=== PATIENT | male | born 2000 | race Caucasian/White ===

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

== ENCOUNTER → 2022-01-07 12:29 | Outpatient (CLI) | payer OTHER, SELFPAY | PROVIDERS: Family Provider Pediatrics; PCP Family Medicine; Visit Provider Physician Assistant | DX: J02.9 Acute pharyngitis, unspecified (principal) | CPT/HCPCS: 87070 ==

== ENCOUNTER 2022-12-26 21:14 | Emergency (ER) | payer OTHER, SELFPAY ==
[2022-12-26 21:34] VITALS: BP 112/55; PULSE 62; RESP 16; TEMP 37.2; O2SAT 97; BMI 21.3
--- NOTE | 2022-12-27 00:49 | ED.ABDPAIN ---
HPI - Abdominal Pain General Chief Complaint: Abdominal Pain Stated Complaint: Stomach pain Time Seen by Provider: 12/27/22 00:49 Source: patient Mode of arrival: Wheelchair History of Present Illness HPI narrative: 22-year-old male nonsmoker with history of ADHD and asthma presents with family in the chief complaint of sudden onset severe abdominal pain that started this evening after eating chili. He states that it was quite intense and he had multiple episodes of dry heaving but denies any actual vomiting. He denies any radiation of the pain or other obvious provocation. He denies any palliation. Denies any constipation or diarrhea. He states that about 1 hour prior to arrival is symptoms had resolved and he is currently without any pain. He denies any history of the same. Related Data Home Medications Medication Instructions Recorded Confirmed albuterol sulfate 2.5 mg/3 mL 2.5 mg inhalation PRN PRN 06/22/18 01/07/22 (0.083 %) solution for nebulization Shortness Of Breath Previous Rx's Medication Instructions Recorded albuterol sulfate 90 mcg/actuation 2 puff inhalation .Q4 PRN 11/16/18 aerosol inhaler shortness of breath #18 grams Allergies Allergy/AdvReac Type Severity Reaction Status Date / Time No Known Drug Allergies Allergy Verified 01/07/22 12:16 Review of Systems Review of Systems Narrative: GENERAL: Denies chills, fatigue, malaise, fever, sweats. HEENT: Denies sinus pain, ear pain, sore throat, difficulty swallowing, dizziness. RESPIRATORY: Denies dyspnea, cough, wheezing, hemoptysis, sputum. CARDIOVASCULAR: Denies chest pain, palpitations, orthopnea, edema, GASTROINTESTINAL: See HPI : Denies dysuria, frequency, incontinence, hematuria, urinary retention. MUSCULOSKELETAL: denies weakness, joint pain, or bony pain SKIN: Denies rash, skin lesions, or other NEUROLOGIC: Denies weakness, headache, numbness, change in speech, confusion, seizures, incoordination. PSYCHIATRIC: No concerning psychosocial issues. 12 point review of systems is negative except for those stated above Patient History Medical History (Updated 12/27/22 @ 02:08 by Jersey Zhu DO) Asthma Surgical History No pertinent past surgical history Family History Mother No problems noted. Social History Smoking Status: Never smoker Smoking Status: Never smoker Substance Use Type: does not use Exam Narrative Exam Narrative: GENERAL: [22] year old patient appears stated age. Well-developed patient, in mild distress. HEAD: Atraumatic. Normocephalic. EYES: Pupils equal round and reactive. Extraocular motions intact. No scleral icterus. No injection or drainage. ENT: Nose without bleeding, purulent drainage. Throat without erythema, tonsillar hypertrophy or exudate. Airway patent. NECK: Trachea midline. Non tender CARDIOVASCULAR: Regular rate and rhythm without murmurs, gallops, or rubs. RESPIRATORY: Clear to auscultation. Breath sounds equal bilaterally. No wheezes, rales, or rhonchi. GASTROINTESTINAL: Abdomen soft, non-tender, nondistended. EXTREMITIES: No edema or joint tenderness. BACK: Nontender without deformity or crepitance. No flank tenderness. NEURO: AOx3. SKIN: No rash or erythema of visible areas Initial Vital Signs Initial Vital Signs: Vital Signs Temperature 99 F 12/26/22 21:34 Pulse Rate 62 12/26/22 21:34 Respiratory Rate 16 12/26/22 21:34 Blood Pressure 112/55 L 12/26/22 21:34 Pulse Oximetry 97 12/26/22 21:34 Oxygen Delivery Method Room Air 12/26/22 21:34 Course Orders Ordered: ED Orders 12/26/22 21:44 Ammonia (NH3) Stat Complete Blood Count AUTO DIFF Stat Comprehensive Metabolic Panel Stat Lipase Stat 12/27/22 00:59 US abdomen limited Stat Discontinued Medications Hydrocodone Bitart/Acetaminophen (Hydrocodone/Acet 5/325 Prepack) 1 bottle MISC SEEINSTR ONE Stop: 12/27/22 02:09 Last Admin: 12/27/22 02:31 Dose: 1 bottle Documented By: LETICIA Ondansetron HCl (Ondansetron 4 Mg Odt Prepack) 1 bottle MISC SEEINSTR ONE Stop: 12/27/22 02:09 Last Admin: 12/27/22 02:31 Dose: 1 bottle Documented By: SB Vital Signs Vital signs: Vital Signs - 8 hr 12/26/22 21:34 12/27/22 02:14 12/27/22 02:22 Temperature 99 F Pulse Rate 62 41 L 46 L Respiratory Rate 16 16 16 Blood Pressure 112/55 L 101/52 L 114/56 L Pulse Oximetry 97 97 Oxygen Delivery Method Room Air Room Air MDM - Abdominal Pain Lab Data 12/27/22 01:20 12/27/22 01:20 Labs: Lab Results 12/27/22 12/27/22 12/27/22 Range/Units 01:20 01:20 01:58 WBC 8.4 (4.5-11.0) X10^3/uL RBC 4.97 (4.5-5.9) X10^6/uL Hgb 14.9 (13.5-17.5) g/dL Hct 42.4 (41-53) % MCV 85.3 (80-100) fL MCH 30.0 (26-34) PG MCHC 35.2 (30-36) % RDW 12.4 (11.6-14.8) % Plt Count 299 (150-400) X10^3/uL Neut % (Auto) 37.6 L (50-75) % Lymph % (Auto) 43.8 H (25-40) % [place] % (Auto) 8.3 (3-14) % Eos % (Auto) 9.1 H (2-4) % Baso % (Auto) 1.2 (0-2) % Neut # (Auto) 3200 (8944-7678) /uL Lymph # (Auto) 3700 (8483-4581) /uL [place] # (Auto) 700 (0-900) /uL Eos # (Auto) 800 H (0-450) /uL Baso # (Auto) 100 (0-100) /uL Sodium 140 (137-145) mmol/L Potassium 3.9 (3.4-5.1) mmol/L Chloride 102 (98-107) mmol/L Carbon Dioxide 29 (22-32) mmol/L BUN 15 (9-20) mg/dL Creatinine 0.67 (0.66-1.25) mg/dL Estimated GFR > 60 (>60) mL/min BUN/Creatinine Ratio 22.4 H (6-22) Glucose 73 (70-100) mg/dL Calcium 9.4 (8.4-10.2) mg/dL Total Bilirubin 0.5 (0.2-1.3) mg/dL AST 30 (17-59) IU/L ALT 40 (<50) IU/L Alkaline Phosphatase 71 (38-126) U/L Ammonia < 9 L (9-30) umol/L Total Protein 7.8 (6.3-8.2) g/dL Albumin 4.7 (3.5-5.0) g/dL Globulin 3.1 (1.7-4.1) g/dL Albumin/Globulin Ratio 1.5 (1.0-2.8) Lipase 510 H (23-300) U/L Point of care testing: Urine Dip Bedside Urine Glucose Negative Bedside Urine Bilirubin - Negative Bedside Urine Ketone - Negative Urine Specific [place] 1.005 Bedside Urine Occult Blood - Negative Bedside Urine pH 7.5 Bedside Urine Protein - Negative Bedside Urine Urobilinogen - Negative Bedside Urine Nitrite - Negative Bedside Urine Leukocytes - Negative Esterase MDM Narrative Medical decision making narrative: CC: 22M with abdominal pain and dry heaving that has resolved Complicating co-morbidities: None known Data collected from: Patient Medical records reviewed: Prior notes reviewed in our EMR Differential considered, but not limited to: Gallbladder disease, pancreatitis, bowel obstruction versus other Exam documented above, pertinent findings include: Currently tender in the right upper quadrant, bowel sounds present, heart rate regular, lungs clear, nonlabored breathing Lab Test results independently reviewed as above. Pertinent findings: No leukocytosis or left shift. No evidence of anemia. Electrolytes and renal function normal. Bilirubin and LFTs normal. Lipase slightly elevated at 510 Imaging studies independently reviewed: Ultrasound without acute findings Treatments: Saline Re-evaluations: Patient continues to rest comfortably without pain, tolerating orals Discussion: Patient with relatively sudden onset severe abdominal pain, possibly worse in the upper portions of his abdomen that had essentially cleared before his arrival. Labs are largely reassuring except for a slightly elevated lipase. Ultrasound demonstrates no abnormal findings. We did discuss the potential of performing a CT scan but sure the opinion that the patient is asymptomatic with largely reassuring labs we will hold off for now. He is given extensive return precautions, sent with some hydrocodone and Zofran, encouraged to employed a clear liquid diet and return precautions discussed at length but include the presence of persistent or worsening pain, vomiting, fever or other bothersome symptoms Disposition: see below, along with detailed discharge instructions that have been reviewed with patient as well as indications for ED re-evaluation and additional outpatient follow up Discharge Plan Departure Patient Disposition: Home Clinical Impression: Acute pancreatitis Instructions: DI for Pancreatitis Activity Restrictions/Additional Instructions: *You have been diagnosed with [abdominal pain, likely due to a mild pancreatitis. As we discussed your history and physical exam as well as labs are otherwise reassuring. Ultrasound showed] *What to do: *Please continue to take your regular medications as directed. *Please consider a clear liquid diet for the next 24-48 hours and then slowly advance to regular as tolerated. Also, try to avoid alcohol, nicotine, caffeine, spicy, acidic or fatty foods as this may worsen your symptoms *If you do not have a primary care provider please contact the [facility] Resource line at [phone]. They will ask some questions about your medical history and help get you set up with a doctor in the community. *Return to Emergency Department if you should have any new, worsening or concerning symptoms, such as [fever greater than 101 F, shaking chills, worsening pain, persistent vomiting or other bothersome symptoms] Prescriptions: No Action albuterol sulfate 90 mcg/actuation HFA aerosol inhaler 2 puff INHALATION .Q4 PRN (Reason: shortness of breath) Qty: 18 3RF albuterol sulfate 2.5 mg /3 mL (0.083 %) Solution For Nebulization 2.5 mg INHALATION PRN PRN (Reason: Shortness Of Breath) Referrals: Frank Matson DO [Primary Care Provider] - Stand Alone Forms: Patient Portal/API
--- NOTE | 2022-12-27 00:59 | DI.US.S_ITS ---
PROCEDURE: US ABDOMEN LIMITED INDICATIONS: POST PRANDIAL EPIGASTRIC PAIN TECHNIQUE: Real-time focused scanning was performed of the abdomen, with image documentation. COMPARISON: None. FINDINGS: Liver is prominent in size at 17 cm. The liver echogenicity is overall within normal limits. No focal liver lesions are seen. The gallbladder is collapsed, which limits its evaluation. No findings of gallstones or sludge are seen. The gallbladder wall is not thickened, measuring 3 mm or less. No specific pericholecystic fluid is seen. The sonographic Brown sign is negative. There is no biliary dilatation, the common bile duct measures 3 mm. No significant pancreatic abnormality is seen on these images. IMPRESSION: The gallbladder demonstrates a normal sonographic appearance. No biliary dilatation is seen. Dictated by: Hector He M.D. on 12/27/2022 at 0:48 Approved by: Hector He M.D. on 12/27/2022 at 0:49
[2022-12-27 01:33] LABS: Add Manual Diff / Slide Review NO; Basophils Absolute Auto 100 /uL (0-100); Basophils Percent Auto 1.2 % (0-2); Eosinophils Absolute Auto 800 /uL (0-450); Eosinophils Percent Auto 9.1 % (2-4); Hematocrit 42.4 % (41-53); Hemoglobin 14.9 g/dL (13.5-17.5); Lymphocytes Absolute Auto 3700 /uL (1100-4500); Lymphocytes Percent Auto 43.8 % (25-40); Mean Corpuscular HGB Conc 35.2 % (30-36); Mean Corpuscular Volume 85.3 fL (80-100); Monocytes Absolute Auto 700 /uL (0-900); Monocytes Percent Auto 8.3 % (3-14); Neutrophils Absolute Auto 3200 /uL (1500-7000); Neutrophils Percent Auto 37.6 % (50-75); Platelet Count 299 X10^3/uL (150-400); Red Blood Cell Count 4.97 X10^6/uL (4.5-5.9); Red Cell Distribution Width 12.4 % (11.6-14.8); White Blood Cell Count 8.4 X10^3/uL (4.5-11.0)
[2022-12-27 01:42] LABS: Alanine Aminotransferase 40 IU/L (<50); Albumin 4.7 g/dL (3.5-5.0); Albumin Globulin Ratio 1.5 (1.0-2.8); Alkaline Phosphatase 71 U/L (38-126); Aspartate Aminotransferase 30 IU/L (17-59); BUN Creatinine Ratio 22.4 (6-22); Bilirubin Total 0.5 mg/dL (0.2-1.3); Blood Urea Nitrogen 15 mg/dL (9-20); Calcium 9.4 mg/dL (8.4-10.2); Carbon Dioxide 29 mmol/L (22-32); Chloride 102 mmol/L (98-107); Estimated Glomerular Filt Rate > 60 mL/min (>60); Globulin 3.1 g/dL (1.7-4.1); Glucose 73 mg/dL (70-100); HEMOLYSIS < 15 (0-50); Lipase 510 U/L (23-300); Potassium 3.9 mmol/L (3.4-5.1); Sodium 140 mmol/L (137-145); Total Protein 7.8 g/dL (6.3-8.2)
[2022-12-27 02:14] VITALS: BP 101/52; PULSE 41; RESP 16; O2SAT 97
[2022-12-27 02:17] LABS: Ammonia (NH3) < 9 umol/L (9-30)
[2022-12-27 02:22] VITALS: BP 114/56; PULSE 46; RESP 16
--- NOTE | 2022-12-27 02:22 | PC.NURSE ---
Vital signs reviewed with MD. Road test evaluated with patient. Patient walked around ED, one lap, without difficulty, denies lightheadedness/dizziness. Patient being prepared for discharge.
[2022-12-27] MEDS: ONDANSETRON 4 MG ODT PREPACK 1 BOTTLE MISC (02:31)
[2022-12-27] MEDS: HYDROCODONE/ACET 5/325 PREPACK 1 BOTTLE MISC (02:31)
== END 2022-12-27 02:33 | disposition home or self-care (01) ==
PROVIDERS: Emergency Provider Emergency Medicine; Family Provider Pediatrics; PCP Family Medicine
DX: K85.90 Acute pancreatitis without necrosis or infection, unspecified (principal)
CPT/HCPCS: 36415; 76705; 80053; 81003; 82140; 83690; 85025; 99283; 99284

== ENCOUNTER → 2024-10-14 15:39 | Outpatient (CLI) | payer OTHER, SELFPAY ==
--- NOTE | 2024-10-14 15:41 | DI.US.S_ITS ---
PROCEDURE: US ABDOMEN LIMITED INDICATIONS: LEFT PALPABLE INTERMITTNET LUMP TECHNIQUE: Real-time focused scanning was performed of the inguinal region, with image documentation. COMPARISON: [facility], , US ABDOMEN LIMITED, 12/27/2022, 1:40. FINDINGS: Reducible fat containing left inguinal hernia with neck measuring approximately 1.6 x 0.8 cm. IMPRESSION: Reducible left fat containing inguinal hernia. Dictated by: Martell Hills M.D. on 10/15/2024 at 19:56 Approved by: Martell Hills M.D. on 10/15/2024 at 19:57
== END ==
PROVIDERS: Family Provider Pediatrics; PCP Family Medicine; Referring Provider Family Medicine; Visit Provider Family Medicine
DX: K40.90 Unilateral inguinal hernia, without obstruction or gangrene, not specified as recurrent (principal)
CPT/HCPCS: 76705

== ENCOUNTER 2025-02-08 07:35 | Day surgery (SDC) | payer OTHER, SELFPAY ==
[2025-01-31 09:26] VITALS: BMI 30.8
[2025-02-08] VITALS (19 sets, daily range): BP systolic 92–136; BP diastolic 45–90; PULSE 48–64; RESP 8–18; TEMP 36.2–36.7; O2SAT 92–100; BMI 29.5
[2025-02-08] MEDS: LACTATED RINGERS 1,000 ML 42 ML IV ×2 (07:54→11:05)
[2025-02-08] MEDS: ACETAMINOPHEN 325 MG TABLET 975 MG PO (07:54)
[2025-02-08] MEDS: FAMOTIDINE 20 MG/2 ML VIAL IV (07:54)
--- NOTE | 2025-02-08 08:26 | P.HP_ITS ---
History of Present Illness History of Present Illness Date Patient Seen: 02/08/25 Time Patient Seen: 08:26 Chief complaint: Left Lap Inguinal Hernia Repair Robot Assist. Narrative: Curtis is a 24-year-old man with a symptomatic left inguinal hernia. Please see the office note from December for details. [facility] Medical History Acne Asthma Depression Anxiety Hemorrhoid (~2021) Recurrent herpes labialis Mild intermittent asthma without complication (08/17/17) Autism spectrum disorder (08/17/17) Attention deficit hyperactivity disorder (ADHD), combined type (08/17/17) Surgical History Anesthesia History of oral surgery (~12/2022) Family History Mother No problems noted. Grandfather Myasthenia gravis Grandmother Arthritis Social History Smoking Status: Never smoker Meds Home Medications and Allergies Home Medications Medication Instructions Recorded Confirmed Type albuterol sulfate 2.5 mg/3 mL 2.5 mg inhalation PRN PRN 06/22/18 02/08/25 History (0.083 %) solution for nebulization Shortness Of Breath albuterol sulfate 90 mcg/actuation 2 puff inhalation Q4-6H PRN 11/21/23 02/08/25 Rx aerosol inhaler shortness of breath or wheezing #6.7 grams valacyclovir 1 gram tablet 2,000 mg (2 x 1 gram) PO BID #10 11/18/24 02/08/25 Rx tabs Allergies Allergy/AdvReac Type Severity Reaction Status Date / Time No Known Drug Allergies Allergy Verified 02/08/25 07:51 Exam Vital Signs (past 8 hours): - 02/08/25 08:03 Temperature 98.0 F Pulse Rate 54 L Respiratory Rate 16 Blood Pressure 125/70 Pulse Oximetry 97 Oxygen Delivery Method Room Air Oxygen Delivery Method Room Air Const General: healthy appearing Assessment & Plan Assessment and plan (1) Left inguinal hernia: Status: Acute Plan Robotic left inguinal hernia repair with mesh Time-Based Coding :: [TOTAL MINUTES] spent with patient and on the chart (including review of chart, obtaining history, exam, reviewing outside data, placing orders, documenting exam and treatment plan, and counseling patient) on [DATE]. PROFEE [employer] Specialist Document charge(s): No
[2025-02-08] MEDS: CEFAZOLIN 2 GM/100 ML PREMIX 100 ML IV (08:55)
--- NOTE | 2025-02-08 09:05 | SUR.OPER ---
Supine on padded OR bed, pink pad used, head on pillow, arms padded and secured at sides, shoulder strap on, legs uncrossed, safety belt at thigh, tape over blanket over lower legs.
[2025-02-08] MEDS: BUPIVACAINE 0.5% (PF) 30 ML VIAL INJ (10:30)
--- NOTE | 2025-02-08 11:16 | P.OP_ITS ---
Operative Date/Time/Diagnoses Date of procedure: 02/08/25 Time of procedure: 11:16 Pre-op diagnosis: Left inguinal hernia Post-op diagnosis: other (Bilateral indirect inguinal hernias) Procedure & Clinicians Procedure: Robotic bilateral inguinal hernia repair with mesh Same procedure as scheduled: No Surgeon: Brandon Hall Picking Belt Operator: Andres Esparza Anesthesia Type: General Operative Notes Findings: Bilateral indirect inguinal hernias Estimated Blood Loss (mL): 10 Procedure in detail: The patient was given preoperative antibiotics. The patient was brought to the operating room, placed on the table in the supine position with the arms tucked and general anesthesia was induced. The abdomen was prepped and draped in the usual fashion. A time-out was performed. A 1 cm transverse incision was created superior to the umbilicus and dissection was carried down to the fascia. The fascia was scored transversely with cautery. The fascia was grasped with a Suly clamp to elevate the abdominal wall. A Peon clamp was used to sanchez the peritoneum. The 12 mm robotic port was placed and the abdomen was insufflated to 15 mmHg. The camera was inserted, there was no evidence of any injury from the entry. There were bilateral indirect inguinal hernias. 8 mm ports were placed under direct vision in the mid left and mid right abdomen. The patient was positioned in Trendelenburg. The robot was docked. We created left peritoneal flap. The peritoneum was dissected off the left cord structures and the Esdras's ligament was exposed. The entire peritoneal sac was dissected out of the internal ring. An extra-large mid weight left Bard 3DMax mesh was brought in and placed over the defect with the medial edge overlapping the pubic symphysis. Next we moved to the right side. We created right peritoneal flap. The peritoneum was dissected off the right cord structures and a similar manner and the Esdras's ligament was exposed. The peritoneal sac was completely dissected out of the internal ring. An extra-large mid weight right Bard 3DMax mesh was brought in and placed over the defect with the medial edge overlapping the pubic symphysis. The medial edges of the two meshes overlapped by about a cm. We then placed a single 3-0 Vicryl stitch to secure the medial edges of the meshes together. We also secured the left mesh to the left Esdras's ligament with a single 3-0 Vicryl stitch. We then closed both peritoneal flaps with a running 3-0 barbed suture. We took one last look around the abdomen and saw no other abnormalities. The suture was removed and accounted for. The robot was undocked. The 8 mm ports were removed under direct vision. The abdomen was desufflated. The 12 mm port was removed. Additional local was injected into the fascia and the fascial incision was closed with 2 interrupted 0 Vicryl sutures. The skin incisions were closed with 4 Monocryl, Steri-Strips and Band-Aids. Andres ZAVALA provided assistance with exposure, retraction and closure of incisions. Complications: none Post-operative Condition: stable Disposition: PACU
[2025-02-08] MEDS: ONDANSETRON 4 MG/2 ML INJ IV (12:41)
[2025-02-08] MEDS: METOCLOPRAMIDE HCL 5 MG TABLET 10 MG PO (14:53)
[2025-02-08] MEDS: hydrOXYzine 50 MG/ML INJ 25 MG IM (15:14)
== END 2025-02-08 15:25 | disposition home or self-care (01) ==
PROVIDERS: Family Provider Pediatrics; PCP Family Medicine; Referring Provider Surgery; Visit Provider Surgery
PROC: 0YQ54ZZ Repair Right Inguinal Region, Percutaneous Endoscopic Approach (ICD-10-PCS; CPT 49650; principal; 2025-02-08 08:45)
DX: K40.20 Bilateral inguinal hernia, without obstruction or gangrene, not specified as recurrent (principal)
CPT/HCPCS: 49650; S2900; C1781; J0690; J1100; J1171; J1885; J2250; J2405; J2704; J3010; J3410; J3490